=== PATIENT | female | born 1980 ===

== ENCOUNTER 2016-09-12 11:54 | Emergency (ER) | payer SELFPAY ==
[2016-09-12 11:55] VITALS: BP 154/96; PULSE 80; RESP 12; TEMP 98.6; O2SAT 100
[2016-09-12] MEDS ORDERED: CIPR-9 PO (23:42)
[2016-09-12] MEDS ORDERED: ACET500T36 PO (23:42)
== END 2016-09-12 12:40 | disposition left against medical advice (07) ==
LOC: NED 11:54
DX: R10.30 Lower abdominal pain, unspecified (principal)
CPT/HCPCS: 99281

== ENCOUNTER 2016-09-12 13:28 | Emergency (ER) | payer SELFPAY ==
[~2016-09-12] VITALS: Ht 170.2 cm; Wt 75.0 kg
[2016-09-12 13:34] VITALS: BP 155/94; PULSE 84; RESP 12; TEMP 98.6; O2SAT 100
--- NOTE | 2016-09-12 22:09 | PD ---
HPI Chief Complaint: Complaint Time Seen by Provider: 21:53 Travel History International Travel<30 days: No Contact w/Intl Traveler<30days: No Traveled to known affect area: No History of Present Illness HPI 36yo F with no significant PMH presents to the ED with c/o yellow vaginal discharge for 1 week with intermittent pelvic pain. Pt states his boyfriend gave him STD since he was seen here and given a shot and medication. He had penile discharge and she said they sent the culture but no results yet. Denies any fever, chest pain, sob, n/v, abdominal pain, dysuria. LMP last week. Pt had tubal ligation. PFSH Past Medical History ?: Not Social History Tobacco Use: Yes Allergies-Medications (Allergen,Severity, Reaction): Coded Allergies: No Known Allergies (Unverified , 09/12/16) Reported Meds & Prescriptions Reported Meds & Active Scripts Active Acetaminophen Extra Strength (Acetaminophen) 500 Mg Tab 500 Mg PO Q6H PRN Cipro (Ciprofloxacin HCl) 500 Mg Tab 500 Mg PO BID 7 Days Review of Systems Except as stated in HPI: all other systems reviewed are Neg Physical Exam Narrative GENERAL: 36yo F not in distress. SKIN: Warm and dry. HEAD: Atraumatic. Normocephalic. EYES: Pupils equal and round. No scleral icterus. No injection or drainage. ENT: No nasal bleeding or discharge. Mucous membranes pink and moist. NECK: Trachea midline. No JVD. CARDIOVASCULAR: Regular rate and rhythm. No murmur appreciated. RESPIRATORY: No accessory muscle use. Clear to auscultation. Breath sounds equal bilaterally. GASTROINTESTINAL: Abdomen soft, mild suprapubic ttp. No rebound tenderness or guarding. PELVIC: +Yellow vaginal discharge. No vaginal bleeding. No CMT or adnexal tenderness bilaterally. MUSCULOSKELETAL: No obvious deformities. No clubbing. No cyanosis. No edema. NEUROLOGICAL: Awake and alert. No obvious cranial nerve deficits. Motor grossly within normal limits. Normal speech. PSYCHIATRIC: Appropriate mood and affect; insight and judgment normal. Data Data Last Documented VS Vital Signs Date Time Temp Pulse Resp B/P Pulse Ox O2 Delivery O2 Flow Rate FiO2 09/12/16 22:33 64 17 138/85 98 Room Air 09/12/16 13:34 98.6 Orders Ed Urine Pregnancytest Poc (09/12/16 22:04) Urinalysis - C+S If Indicated (09/12/16 22:04) Complete Blood Count With Diff (09/12/16 22:04) Basic Metabolic Panel (Bmp) (09/12/16 22:04) Gc And Chlamydia Pcr (09/12/16 22:04) Wet Prep Profile (09/12/16 22:04) Urine Culture (09/12/16 22:30) Azithromycin Powd Pack (Zithromax Powd P (09/12/16 23:30) Ceftriaxone Inj (Rocephin Inj) (09/12/16 23:30) Lidocaine 1% Inj (50 Ml) (Xylocaine 1% I (09/12/16 23:30) Labs Laboratory Tests Test 09/12/16 09/12/16 22:30 22:50 White Blood Count 9.6 TH/MM3 Red Blood Count 4.34 MIL/MM3 Hemoglobin 8.7 GM/DL Hematocrit 28.1 % Mean Corpuscular Volume 64.8 FL Mean Corpuscular Hemoglobin 19.9 PG Mean Corpuscular Hemoglobin 30.8 % Concent Red Cell Distribution Width 18.8 % Platelet Count 484 TH/MM3 Mean Platelet Volume 7.2 FL Neutrophils (%) (Auto) 52.1 % Lymphocytes (%) (Auto) 35.1 % Monocytes (%) (Auto) 6.6 % Eosinophils (%) (Auto) 4.9 % Basophils (%) (Auto) 1.3 % Neutrophils # (Auto) 5.0 TH/MM3 Lymphocytes # (Auto) 3.4 TH/MM3 Monocytes # (Auto) 0.6 TH/MM3 Eosinophils # (Auto) 0.5 TH/MM3 Basophils # (Auto) 0.1 TH/MM3 CBC Comment AUTO DIFF Differential Comment AUTO DIFF CONFIRMED Urine Color YELLOW Urine Turbidity HAZY Urine pH 7.0 Urine Specific [place] 1.020 Urine Protein TRACE mg/dL Urine Glucose (UA) NEG mg/dL Urine Ketones NEG mg/dL Urine Occult Blood NEG Urine Nitrite POS Urine Bilirubin NEG Urine Urobilinogen LESS THAN 2.0 MG/DL Urine Leukocyte Esterase SMALL Urine RBC 1 /hpf Urine WBC 10 /hpf Urine Squamous Epithelial <1 /hpf Cells Urine Bacteria MOD /hpf Microscopic Urinalysis Comment CULTURE INDICATED Sodium Level 138 MEQ/L Potassium Level 3.8 MEQ/L Chloride Level 104 MEQ/L Carbon Dioxide Level 28.0 MEQ/L Anion Gap 6 MEQ/L Blood Urea Nitrogen 13 MG/DL Creatinine 1.00 MG/DL Estimat Glomerular Filtration 63 ML/MIN Rate Random Glucose 103 MG/DL Calcium Level 8.4 MG/DL Clue Cells (Wet Prep) NONE SEEN Vaginal Trichomonas (Wet Prep) NONE SEEN Vaginal Yeast (Wet Prep) NONE SEEN Chlamydia trachomatis DNA DETECTED (PCR) Neisseria gonorrhoeae DNA DETECTED (PCR) MDM Medical Decision Making Medical Screen Exam Complete: Yes Emergency Medical Condition: Yes Differential Diagnosis Gonorrhea vs. chlamydia vs. PID vs. bacterial vaginosis vs. trichomoniasis Narrative Course 36yo F with yellow vaginal discharge for 1 week. Pt given ceftriaxone 250mg IM with lidocaine and azithromycin 1000mg PO for presumed GC/chlamydia. Labs reviewed, no leukocytosis. H/H low at 8.7/28.1. Pt had just finished her menstrual period and asymptomatic. Does not know her baseline. Informed pt and will have her follow up as outpatient. UA showed positive nitrite so will treat for UTI. Urine negative. Wet prep negative. VS stable. Pt is not tachycardic or hypotensive and denies any black stool. Return precautions given. Diagnosis Primary Impression: Vaginal discharge Additional Impression: UTI (urinary tract infection) Qualified Code: N39.0 - Urinary tract infection without hematuria, site unspecified Patient Instructions: General Instructions Departure Forms: Tests/Procedures Additional Instructions: Please follow up with your PMD in 1-2 days regarding low blood count. Hemoglobin 8.7. Please return to the ED if you have any worsening symptoms. Take medication as instructed. Med/Other Pt SpecificInfo: Prescription(s) given Scripts Acetaminophen (Acetaminophen Extra Strength)500 Mg [id number] Mg PO Q6H PRN (PAIN SCALE 1 TO 4) #20 TAB Ref 0 Prov:Zee Razo DO 09/12/16 Ciprofloxacin (Cipro)500 Mg [id number] Mg PO BID 7 Days Ref 0 Prov:Zee Razo DO 09/12/16 Zee Razo DO Sep 12, 2016 22:09
[2016-09-12 22:33] VITALS: BP 138/85; PULSE 64; RESP 17; O2SAT 98
[2016-09-12 22:55] LABS: BASOPHIL # 0.1 TH/MM3 (0-0.2); BASOPHIL % 1.3 % (0.0-2.0); EOSINOPHIL # 0.5 TH/MM3 (0-0.4); EOSINOPHIL % 4.9 % (0.0-4.0); HEMATOCRIT 28.1 % (35.0-46.0); LYMPH % 35.1 % (9.0-44.0); LYMPHOCYTE # 3.4 TH/MM3 (1.0-4.8); MEAN CELL VOLUME 64.8 FL (80.0-100.0); MEAN CORPUSCULAR HEMOGLOBIN 19.9 PG (27.0-34.0); MEAN CORPUSCULAR HGB CONC 30.8 % (32.0-36.0); MONO % 6.6 % (0.0-8.0); NEUT % 52.1 % (16.0-70.0); PLATELET COUNT 484 TH/MM3 (150-450); RED BLOOD COUNT 4.34 MIL/MM3 (4.00-5.30); RED CELL DISTRIBUTION WIDTH 18.8 % (11.6-17.2); WHITE BLOOD COUNT 9.6 TH/MM3 (4.0-11.0)
[2016-09-12 22:59] LABS: HEMO FLAGS AUTO DIFF
[2016-09-12 23:02] LABS: BLOOD, URINE NEG (NEG); COMMENT (UR) CULTURE INDICATED; CULTURE IF INDICATED CULTURE INDICATED; GLUCOSE,URINE NEG (NEG); KETONE, URINE NEG (NEG); SQUAMOUS EPITHELIAL CELL URINE <1 /hpf (0-5); URINE COLOR YELLOW (YELLW/STRAW)
[2016-09-12 23:05] LABS: NITRITE,URINE POS (NEG)
[2016-09-12 23:06] LABS: BACTERIA, URINE MOD /hpf
[2016-09-12 23:14] LABS: POTASSIUM 3.8 MEQ/L (3.5-5.1)
[2016-09-12] MEDS ORDERED: AZITHROMYCIN PWD FOR SUSP 1 GM PACKET PO ONE (23:30)
[2016-09-12] MEDS ORDERED: cefTRIAXone 250 MG VIAL IM ONE (23:30)
[2016-09-12] MEDS ORDERED: LIDOCAINE HCL 1% 50 ML VIAL IM ONE (23:30)
[2016-09-12] MEDS ORDERED: CIPR-9 PO (23:42)
[2016-09-12] MEDS ORDERED: ACET500T36 PO (23:42)
[2016-09-12 23:52] LABS: SCAN/DIFF AUTO DIFF CONFIRMED
[2016-09-13 02:28] LABS: CHLAMYDIA PCR DETECTED (NOT DETECT); NEISSERIA PCR DETECTED (NOT DETECT)
== END 2016-09-12 23:48 | disposition home or self-care (01) ==
LOC: NEPA 13:28
DX: N89.8 Other specified noninflammatory disorders of vagina (principal); N39.0 Urinary tract infection, site not specified
CPT/HCPCS: 80048; 81001; 84703; 85025; 87077; 87086; 87186; 87210; 87491; 87591; 96372; 99284; J0696